=== PATIENT | female | born 1960 | race Caucasian/White ===

== ENCOUNTER 2018-03-13 21:06 | Emergency (ER) | payer MEDICARE, OTHER ==
[~2018-03-13] VITALS: Ht 167.6 cm; Wt 63.5 kg
[~2018-03-13 21:06] MED LIST: ACET325 PO; ALBIPROI INH; ALBU90I INH; ALBU90OI INH; ALBU90OI61 INH; AMOCLA875 PO; AMOX500 PO; AMOX875 PO; CELE200 PO; CEPH500 PO; CHLO25 PO; CLAR250 PO; CLIN150 PO; CODGUAEL PO; CRUTCH4 USE; CYCL10 PO; DOXY100 PO; FLUT110OIA IH; GUAPHELA PO; HYDACE5 PO; LIDO5TP TOP; LISI20 PO; LORA10 PO; META800 PO; METPRE4DP PO; OLAN5 PO; OXYM.05NI; PENVK500 PO; PRED10 PO; PRED20 PO; PROACE100 PO; PSEU30 PO; RISP.25 PO; RXCYCL10 PO; RXHYDACE PO; RXPROACE PO; SERT50 PO; SODCHL.65S; SULTRIDS PO; TRAZ100 PO; TRIE10TC TOP; VARE1; VARE1 PO
[2018-03-13 21:31] LABS: BASOPHILS ABSOLUTE AUTO 0.04 K/mm3 (0.00-0.23); BASOPHILS PERCENT AUTO 1 % (0-2); EOSINOPHILS ABSOLUTE AUTO 0.19 K/mm3 (0.00-0.68); EOSINOPHILS PERCENT AUTO 2 % (0-6); Hematocrit 41.5 % (33.0-51.0); Hemoglobin 13.8 g/dL (11.5-16.0); IMMATURE GRAN ABSOLUTE AUTO 0.02 K/mm3 (0.00-0.10); IMMATURE GRAN PERCENT AUTO 0 % (0-1); LYMPHOCYTES ABSOLUTE AUTO 3.07 K/mm3 (0.84-5.20); LYMPHOCYTES PERCENT AUTO 38 % (21-46); MONOCYTES ABSOLUTE AUTO 0.67 K/mm3 (0.16-1.47); MONOCYTES PERCENT AUTO 8 % (4-13); Mean Corpuscular HGB 29.6 pg (26.0-34.0); Mean Corpuscular HGB Conc 33.3 g/dL (31.5-36.5); Mean Corpuscular Volume 89 fL (80-100); Mean Platelet Volume 9.3 fL (9.1-12.4); NEUTROPHILS ABSOLUTE AUTO 4.05 K/mm3 (1.96-9.15); NEUTROPHILS PERCENT AUTO 50 % (41-73); Platelet Count 197 K/mm3 (150-400); RDW Coefficient Variation 12.6 % (11.7-14.2); RDW Standard Deviation 41.1 fL (35.1-46.3); Red Blood Cell Count 4.67 M/mm3 (3.80-5.20); White Blood Cell Count 8.04 K/mm3 (4.00-11.30)
[2018-03-13 21:48] LABS: Troponin I <0.015 ng/mL (0.000-0.040)
[2018-03-13 21:49] LABS: Alanine Aminotransfer (ALT/SGP 16 U/L (12-78); Albumin, Blood 3.5 g/dL (3.4-5.0); Alk Phos 126 U/L (50-136); Anion Gap 7 mmol/L (6-16); Aspartate Aminotrans (AST/SGOT 15 U/L (12-37); Bilirubin, Total 0.3 mg/dL (0.1-1.0); Blood Urea Nitrogen 6 mg/dL (8-24); Bun/Creatinine Ratio 9.5 (12.0-20.0); CO2, Blood 29 mmol/L (21-32); Calcium, Blood 8.3 mg/dL (8.5-10.1); Chloride, Blood 104 mmol/L (98-108); Creatinine, Blood 0.63 mg/dL (0.40-1.00); Globulin, Blood 3.4 g/dL (2.2-4.0); Glomerular Filtration Rate >60 (60-); Glucose, Blood 101 mg/dL (70-99); Potassium, Blood 3.6 mmol/L (3.5-5.5); Sodium, Blood 140 mmol/L (136-145); Total Protein, Blood 6.9 g/dL (6.4-8.2)
[2018-03-13] MEDS ORDERED: Ventolin/Prove6.7 GM INH (21:49)
[2018-03-13] MEDS ORDERED: ALBU3IS INH (21:49)
[2018-03-13] MEDS ORDERED: CETI5 PO (21:50)
== END 2018-03-13 23:05 | disposition home or self-care (01) ==
LOC: ER 21:06
PROVIDERS: Emergency Medicine
DX: R55 Syncope and collapse (principal); J44.9 Chronic obstructive pulmonary disease, unspecified; F32.9 Major depressive disorder, single episode, unspecified; I10 Essential (primary) hypertension; Z85.3 Personal history of malignant neoplasm of breast; Z88.5 Allergy status to narcotic agent; Z88.8 Allergy status to other drugs, medicaments and biological substances; Z79.899 Other long term (current) drug therapy; F17.200 Nicotine dependence, unspecified, uncomplicated
CPT/HCPCS: 80053; 84484; 85025; 93005; 93010; 99284

== ENCOUNTER → 2019-07-15 | Outpatient (CLI) | payer OTHER ==
[~2019-07-15] MED LIST changes: +ALBU3IS INH; +CETI5 PO; +Ventolin/Prove6.7 GM INH
[2019-07-16 15:02] LABS: Stool Occult Bld Immuno 1 Positive (NEGATIVE)
== END ==
LOC: LAB SHORT 14:27 → LAB 14:27
PROVIDERS: Nurse Practitioner Family
DX: Z12.11 Encounter for screening for malignant neoplasm of colon (principal)
CPT/HCPCS: G0328

== ENCOUNTER 2019-09-03 12:06 | Day surgery (SDC) | payer OTHER ==
[~2019-09-03] VITALS: Ht 167.6 cm; Wt 69.1 kg
[2019-09-03] MEDS ORDERED: ALLEGRA ALLERG180 MG (13:26)
--- NOTE | 2019-09-03 13:31 | NUR ---
09/03/19 1331 TRANG TANNER PT DOES NOT KNOW HEALTH HISTORY, CALLED [facility] AND RECIEVED ALL INFORMATION FROM THEM.
--- NOTE | 2019-09-03 16:31 | NUR ---
09/03/19 1631 Chantal Phillips AT APPX 1610 PATIENT BEGAN WRETCHING, ZOFRAN GIVEN PER PROTOCOL AND PHYSICIAN OK. PATIENT SUCTION OF CLEAR WATER LIKE FLUID O2 SATS DID NOT DROP THROUGHOUT THIS INCIDENT. PATIENT REMAINED STABLE
== END 2019-09-03 17:37 | disposition home or self-care (01) ==
LOC: ORSCSDS 12:06
PROVIDERS: Student in an Organized Health Care Education/Training Program
PROC: 0DBM8ZX Excision of Descending Colon, Via Natural or Artificial Opening Endoscopic, Diagnostic (ICD-10-PCS; principal; 2019-09-03 14:00)
PROC: 0DBN8ZX Excision of Sigmoid Colon, Via Natural or Artificial Opening Endoscopic, Diagnostic (ICD-10-PCS; principal; 2019-09-03 14:00)
PROC: 0DBK8ZX Excision of Ascending Colon, Via Natural or Artificial Opening Endoscopic, Diagnostic (ICD-10-PCS; principal; 2019-09-03 14:00)
PROC: 0DBH8ZX Excision of Cecum, Via Natural or Artificial Opening Endoscopic, Diagnostic (ICD-10-PCS; principal; 2019-09-03 14:00)
PROC: 0DBC8ZX Excision of Ileocecal Valve, Via Natural or Artificial Opening Endoscopic, Diagnostic (ICD-10-PCS; principal; 2019-09-03 14:00)
DX: R19.5 Other fecal abnormalities (principal); D12.5 Benign neoplasm of sigmoid colon; D12.0 Benign neoplasm of cecum; D12.2 Benign neoplasm of ascending colon; D12.4 Benign neoplasm of descending colon; K64.8 Other hemorrhoids; K57.30 Diverticulosis of large intestine without perforation or abscess without bleeding; I10 Essential (primary) hypertension; J44.9 Chronic obstructive pulmonary disease, unspecified; B19.20 Unspecified viral hepatitis C without hepatic coma; F17.210 Nicotine dependence, cigarettes, uncomplicated; F03.90 Unspecified dementia, unspecified severity, without behavioral disturbance, psychotic disturbance, mood disturbance, and anxiety; Z79.899 Other long term (current) drug therapy
CPT/HCPCS: 88305; J2405; J2704; J7040; J7120

== ENCOUNTER → 2020-08-10 | Outpatient (CLI) | payer OTHER ==
[~2020-08-10] MED LIST changes: +ALLEGRA ALLERG180 MG
[2020-08-10 18:46] LABS: CHOL/HDL RATIO 2.6; Cholesterol 119 mg/dL (50-200); HDL Cholesterol 45 mg/dL (>39); LDL/HDL RATIO 1.3; Low Density Lipoprotein Chol 59 mg/dL (0-110); Triglycerides 76 mg/dL (30-160); Very Low Density Lipoprot Chol 15 mg/dL (6-32)
== END | disposition home or self-care (01) ==
LOC: LAB SHORT 15:01 → LAB 15:01
PROVIDERS: Nurse Practitioner Family
DX: E78.2 Mixed hyperlipidemia (principal)
CPT/HCPCS: 80061

== ENCOUNTER 2020-11-24 10:45 | Day surgery (SDC) | payer OTHER ==
[~2020-11-24] VITALS: Ht 167.6 cm; Wt 62.8 kg
[2020-11-24] MEDS ORDERED: SYMBICORT 160-4.6 GM (11:42)
[2020-11-24] MEDS ORDERED: ATOR20 (11:43)
[2020-11-24] MEDS ORDERED: TIOT18 (11:43)
== END 2020-11-24 12:52 | disposition home or self-care (01) ==
LOC: ORSCSDS 10:45
PROVIDERS: Student in an Organized Health Care Education/Training Program
PROC: 0DBH8ZX Excision of Cecum, Via Natural or Artificial Opening Endoscopic, Diagnostic (ICD-10-PCS; principal; 2020-11-24 12:00)
PROC: 0DBK8ZX Excision of Ascending Colon, Via Natural or Artificial Opening Endoscopic, Diagnostic (ICD-10-PCS; principal; 2020-11-24 12:00)
PROC: 0DBL8ZX Excision of Transverse Colon, Via Natural or Artificial Opening Endoscopic, Diagnostic (ICD-10-PCS; principal; 2020-11-24 12:00)
DX: Z12.11 Encounter for screening for malignant neoplasm of colon (principal); D12.0 Benign neoplasm of cecum; D12.2 Benign neoplasm of ascending colon; D12.3 Benign neoplasm of transverse colon; K57.30 Diverticulosis of large intestine without perforation or abscess without bleeding; K64.8 Other hemorrhoids; Z86.010 Personal history of colon polyps; J44.9 Chronic obstructive pulmonary disease, unspecified; I10 Essential (primary) hypertension; Z79.899 Other long term (current) drug therapy; F17.210 Nicotine dependence, cigarettes, uncomplicated
CPT/HCPCS: 88305; J2704; J7120

== ENCOUNTER 2024-08-25 13:14 | Emergency (ER) | payer OTHER ==
[~2024-08-25] VITALS: Ht 167.6 cm; Wt 59.0 kg
[~2024-08-25 13:14] MED LIST changes: +ATOR20; +SYMBICORT 160-4.6 GM; +TIOT18
[2024-08-25 14:04] VITALS: BP 85/64
[2024-08-25 15:51] LABS: Source, Urine Clean Catch
[2024-08-25 15:57] LABS: Appearance, Urine Cloudy (Clear); Bilirubin, Urine Neg (Neg); Blood, Urine 1+ (Neg); Color, Urine Yellow (P-Yellow); Glucose Qualitative, Urine Neg (Neg); Ketones, Urine 1+ (Neg); Leukocyte Esterase, Urine 1+ (Neg); Nitrite, Urine Neg (Neg); Protein, Urine 2+ (Neg); Specific Gravity, Urine 1.025 (1.003-1.022); Urobilinogen, Urine 2+ (Normal)
[2024-08-25 16:07] LABS: Bacteria Many /hpf; Mucus Light (0-Heavy); Red Blood Cells, Urine 0-2 /hpf (0-2); Squamous Epithelial Cells Many /hpf (Few)
[2024-08-25] MEDS ORDERED: Macrobid 100 M100 MG PO (16:21)
[2024-08-25] MEDS ORDERED: ULTRA-LIGHT RO1 EACH UD ×2 (16:21→16:57)
== END 2024-08-25 17:22 | disposition home or self-care (01) ==
LOC: ER 13:14
PROVIDERS: Physician Assistant
DX: S83.91XA Sprain of unspecified site of right knee, initial encounter (principal); N39.0 Urinary tract infection, site not specified; K21.9 Gastro-esophageal reflux disease without esophagitis; J44.9 Chronic obstructive pulmonary disease, unspecified; I10 Essential (primary) hypertension; F17.210 Nicotine dependence, cigarettes, uncomplicated; W01.0XXA Fall on same level from slipping, tripping and stumbling without subsequent striking against object, initial encounter; Z79.51 Long term (current) use of inhaled steroids; Z79.899 Other long term (current) drug therapy; Z88.5 Allergy status to narcotic agent; Z88.6 Allergy status to analgesic agent
CPT/HCPCS: 73562-RT; 81001; 87086; 99284-25

== ENCOUNTER 2024-11-10 22:22 | Inpatient (IN) | payer OTHER ==
[~2024-11-10] VITALS: Ht 165.1 cm; Wt 61.2 kg
[~2024-11-10 22:22] MED LIST changes: -ALLEGRA ALLERG180 MG; +ALLEGRA ALLERG180 MG PO; -ATOR20; +ATOR20 PO; +Macrobid 100 M100 MG PO; -SYMBICORT 160-4.6 GM; +SYMBICORT 160-4.6 GM INH; -TRAZ100 PO; +TRAZ150T57 PO; +ULTRA-LIGHT RO1 EACH UD
[2024-11-10 22:44] LABS: BASOPHILS ABSOLUTE AUTO 0.02 K/mm3 (0.00-0.23); BASOPHILS PERCENT AUTO 0 % (0-2); EOSINOPHILS ABSOLUTE AUTO 0.01 K/mm3 (0.00-0.68); EOSINOPHILS PERCENT AUTO 0 % (0-6); IMMATURE GRAN ABSOLUTE AUTO 0.02 K/mm3 (0.00-0.10); IMMATURE GRAN PERCENT AUTO 0 % (0-1); LYMPHOCYTES ABSOLUTE AUTO 0.77 K/mm3 (0.84-5.20); LYMPHOCYTES PERCENT AUTO 9 % (21-46); MONOCYTES PERCENT AUTO 13 % (4-13); Mean Corpuscular HGB 30.5 pg (26.0-34.0); Mean Corpuscular HGB Conc 33.3 g/dL (31.5-36.5); Mean Corpuscular Volume 92 fL (80-100); NEUTROPHILS ABSOLUTE AUTO 6.98 K/mm3 (1.96-9.15); NEUTROPHILS PERCENT AUTO 78 % (41-73); Platelet Count 164 K/mm3 (150-400); RDW Coefficient Variation 12.8 % (11.7-14.2); RDW Standard Deviation 43.2 fL (35.1-46.3); Red Blood Cell Count 4.26 M/mm3 (3.80-5.20)
[2024-11-10 23:03] LABS: Albumin, Blood 3.6 g/dL (3.4-5.0); Albumin/Globulin Ratio 1.2 (0.8-1.8); Bilirubin, Total 0.5 mg/dL (0.1-1.0); Bun/Creatinine Ratio 20.9 (12.0-20.0); Calcium, Blood 8.4 mg/dL (8.5-10.1); Creatinine, Blood 0.57 mg/dL (0.40-1.00); Globulin, Blood 3.1 g/dL (2.2-4.0); Total Protein, Blood 6.7 g/dL (6.4-8.2)
[2024-11-10] MEDS ORDERED: CefTRIAXone Sodium 1,000 MG in NS 100 ML IV ONE (23:45)
[2024-11-10] MEDS ORDERED: Azithromycin 500 MG in NS 250 ML IV ONE (23:45)
[2024-11-10] MEDS ORDERED: Ipratropium/Albuterol SulF 2.5-0.5MG/3 ML Amp INH ONE (23:45)
[2024-11-11 00:35] LABS: Source, Urine Clean Catch
[2024-11-11 00:40] LABS: Appearance, Urine Clear (Clear); Bilirubin, Urine Neg (Neg); Blood, Urine 3+ (Neg); Color, Urine Yellow (P-Yellow); Glucose Qualitative, Urine Neg (Neg); Ketones, Urine Neg (Neg); Leukocyte Esterase, Urine Neg (Neg); Nitrite, Urine Neg (Neg); Protein, Urine 3+ (Neg); Specific Gravity, Urine 1.025 (1.003-1.022); Urobilinogen, Urine NORM (Normal)
[2024-11-11 01:01] LABS: CORONAVIRUS COVID-19 AG Negative (NEGATIVE); INFLUENZA B AG Negative (NEGATIVE)
[2024-11-11 01:06] LABS: Bacteria Mod /hpf; Granular Casts 0-2 /lpf (0); Hyaline Casts 0-2 /lpf (0-2); Red Blood Cells, Urine 0-2 /hpf (0-2); Squamous Epithelial Cells Mod /hpf (Few)
[2024-11-11] MEDS ORDERED: Albuterol 2.5 MG/3 ML VIAL INH SCH (01:10)
[2024-11-11] MEDS ORDERED: NS 1,000 ML IV SCH (02:40)
[2024-11-11] MEDS ORDERED: Ipratropium/Albuterol SulF 2.5-0.5MG/3 ML Amp INH SCH (03:10)
[2024-11-11 04:40] VITALS: BP 105/57
[2024-11-11 05:59] LABS: BASOPHILS ABSOLUTE AUTO 0.04 K/mm3 (0.00-0.23); BASOPHILS PERCENT AUTO 0 % (0-2); EOSINOPHILS ABSOLUTE AUTO 0.01 K/mm3 (0.00-0.68); EOSINOPHILS PERCENT AUTO 0 % (0-6); Hematocrit 36.4 % (33.0-51.0); Hemoglobin 12.6 g/dL (11.5-16.0); IMMATURE GRAN ABSOLUTE AUTO 0.08 K/mm3 (0.00-0.10); IMMATURE GRAN PERCENT AUTO 1 % (0-1); LYMPHOCYTES PERCENT AUTO 10 % (21-46); MONOCYTES ABSOLUTE AUTO 1.36 K/mm3 (0.16-1.47); MONOCYTES PERCENT AUTO 15 % (4-13); Mean Corpuscular HGB 31.3 pg (26.0-34.0); Mean Corpuscular HGB Conc 34.6 g/dL (31.5-36.5); Mean Corpuscular Volume 90 fL (80-100); Mean Platelet Volume 9.1 fL (9.1-12.4); NEUTROPHILS ABSOLUTE AUTO 6.55 K/mm3 (1.96-9.15); NEUTROPHILS PERCENT AUTO 73 % (41-73); Platelet Count 141 K/mm3 (150-400); RDW Coefficient Variation 12.9 % (11.7-14.2); RDW Standard Deviation 42.3 fL (35.1-46.3); Red Blood Cell Count 4.03 M/mm3 (3.80-5.20); White Blood Cell Count 8.94 K/mm3 (4.00-11.30)
[2024-11-11 06:42] LABS: Albumin, Blood 3.1 g/dL (3.4-5.0); Albumin/Globulin Ratio 1.1 (0.8-1.8); Bilirubin, Total 0.3 mg/dL (0.1-1.0); Bun/Creatinine Ratio 22.4 (12.0-20.0); Calcium, Blood 8.1 mg/dL (8.5-10.1); Creatinine, Blood 0.49 mg/dL (0.40-1.00); Globulin, Blood 2.7 g/dL (2.2-4.0); Potassium, Blood 3.7 mmol/L (3.5-5.5); Total Protein, Blood 5.8 g/dL (6.4-8.2)
--- NOTE | 2024-11-11 06:43 | NUR ---
P;T ARRIVED ON MEDICAL UNIT @ APPROX 0230 THIS SHIFT. SHE HAS SLEPT FOR THE ENTIRE TIME SHE HAS BEEN HERE. ASSESSMENT COMPLETED AND ORDERS VERIFIED.
[2024-11-11 07:30] VITALS: BP 135/61
--- NOTE | 2024-11-11 07:30 | NUR ---
ASSUMED CARE OF PATIENT. AWAKE DURING SHIFT CHANGE. ORIENTED TO SELF, ONLY.
[2024-11-11] MEDS ORDERED: MethylPREDNISolone Sod Succ 125 MG Vial IV SCH (09:00)
[2024-11-11] MEDS ORDERED: Enoxaparin 40 MG/0.4 ML SYR SC SCH (09:00)
[2024-11-11] MEDS ORDERED: PredniSONE 20 MG Tab PO SCH (09:00)
[2024-11-11] MEDS ORDERED: Oseltamivir Phosphate 75 MG Cap PO SCH (09:00)
--- NOTE | 2024-11-11 09:53 | NUR ---
UTILITIES EQUIPMENT REPAIRER SWAB COLLECTED FOR INFLUENZA SUBTYPING PER VIRGIL MONTEZ.
--- NOTE | 2024-11-11 11:18 | NUR ---
STEVE, TRIMMER LOADER [employer]ER[employer] MAKER, CALLING FROM [facility], REQUESTING UPDATE ON DELILAH. UPDATE GIVEN. SHE WILL BE FAXING A COPY OF HER MAR TO US. PATIENT USES 2LPM/HS AT BASELINE.
--- NOTE | 2024-11-11 14:26 | NUR ---
Pt. is sitting up in a chair looking downward. When I enter the room she slowly looked up and displayed evidence that I was welcome (she nodded). The Pt. did not verbalize anything during the visit, but did answer simple yes/no questions with nods. Pt. displayed evidence of being alone and did not acknowledge the involvement of family, but she did affirm that she was a woman of reese and welcomed prayer. Prayed with Pt. Will remain available to the Pt.
[2024-11-11 16:03] VITALS: BP 116/62
--- NOTE | 2024-11-11 17:31 | NUR ---
END OF SHIFT SUMMARY: A&O TO SELF ONLY. CHAIR ALARM/BED ALARM ACTIVATED DUE TO NOT UTILIZING CALL LIGHT; IMPULSIVE AND FORGETS LIMITATIONS. CONTINENT OF BOWEL AND BLADDER. AMBULATES c FWW TO BATHROOM. MEDS WHOLE c FLUIDS. SALINE LOCKED IN RIGHT AC. UPDATED PROVIDED TO EXTENDER OF RICEJamilah SAMS, WHERE PATIENT RESIDES, AND SON, JOSE A. MAINTAINING SPO2 >92% ON 3LPM/NC; 2LPM/NC @ HS AT BASELINE. BED IN LOWEST POSITION, CALL LIGHT WITHIN REACH, ALL NEEDS MET. REPORT TO ONCOMING NURSE.
--- NOTE | 2024-11-11 18:46 | NUR ---
GRANDDAUGHTER, SARAH LEWIS, CAN BE REACHED IN CASE OF AN EMERGENCY: [phone]
[2024-11-11 19:47] VITALS: BP 135/79
[2024-11-11] MEDS ORDERED: Nicotine 21 MG PATCH TOP SCH (20:40)
[2024-11-11] MEDS ORDERED: NS 250 ML IV PRN (20:45)
[2024-11-11] MEDS ORDERED: Azithromycin 250 MG Tab PO SCH (21:00)
[2024-11-11] MEDS ORDERED: Atorvastatin 10 MG Tab PO SCH (21:00)
[2024-11-11] MEDS ORDERED: RisperiDONE 0.25 MG Tab PO SCH (21:00)
[2024-11-11] MEDS ORDERED: TraZODone HCl 50 MG Tab PO SCH (21:00)
[2024-11-11] MEDS ORDERED: CefTRIAXone Sodium 1,000 MG in NS 100 ML IV SCH (21:00)
[2024-11-12] MEDS ORDERED: FLUTICASONE P10.6 GM INH (02:42)
[2024-11-12] MEDS ORDERED: IPRAT-ALBUT 0.5-3 ML INH (02:43)
[2024-11-12] MEDS ORDERED: LORA10ER PO (02:43)
[2024-11-12] MEDS ORDERED: THERA-D2000 UNIT PO (02:44)
[2024-11-12] MEDS ORDERED: SPIRIVA RESPIMAT4 G3 INH (02:45)
[2024-11-12] MEDS ORDERED: Acetaminophen325 M1 PO (02:46)
[2024-11-12] MEDS ORDERED: ALBU90OI INH (02:47)
[2024-11-12] MEDS ORDERED: BISA10S PR (02:47)
[2024-11-12] MEDS ORDERED: LOPE2C PO (02:48)
[2024-11-12] MEDS ORDERED: DULCOLAX400 MG/5 M PO (02:48)
[2024-11-12] MEDS ORDERED: Fleet Enema132 ML PR (02:48)
[2024-11-12] MEDS ORDERED: NYSTATIN15 GM TOP (02:49)
--- NOTE | 2024-11-12 06:47 | NUR ---
SHIFT SUMMARY NOC PT A/O TO SELF. PLEASANT AND COOPERATIVE WITH CARE.VSS. PT HOME RX RECONCILED AND RESTARTED AT BEDTIME. PT GRANDDAUGHTER IN ROOM DURING BEGINNING OF SHIFT AND GOT MED LIST FROM [facility]. PT RECEIVING IVABX PER EMAR. ON DROPLET ISOLATION FOR INFLUENZA A. PT REMAINS ON 3L/HFNC SO PT CAN GET INTO BATHROOM. PT CURRENTLY RESTING WITH BED ALARM ON, BED IN LOWEST POSITION, AND CALL LIGHT WITHIN REACH.
[2024-11-12 07:30] VITALS: BP 135/113
--- NOTE | 2024-11-12 16:23 | NUR ---
NO CHANGES IN THE PT STATUS FOR THE DAY. NO C/O PAIN OR SOB.
[2024-11-12 17:39] VITALS: BP 132/70
[2024-11-12 20:05] VITALS: BP 87/67
[2024-11-13 04:50] VITALS: BP 128/78
--- NOTE | 2024-11-13 06:11 | NUR ---
SHIFT SUMMARY NOC PT A/O TO SELF AND GRANDAUGHTER. PLEASANTLY CONFUSED AND COOPERATIVE WITH CARE. PT STILL ON 3L/NC SPO2 >92%. PT STILL HAVNG URINARY FREQUENCY/ URGENCY. STILL RECEIVING IV ABX FOR PNA/UTI. PT ON DROPLET ISOLATION FOR INFLUENZA A. PT POSSIBLE DISCHARGE BACK TO [facility] TODAY. PT CURRENTLY RESTING WITH BED IN LOWEST POSITION, AND CALL LIGHT WITHIN REACH.
[2024-11-13 07:36] VITALS: BP 120/106
[2024-11-13] MEDS ORDERED: Albuterol 2.5 MG/3 ML VIAL INH SCH (07:55)
[2024-11-13] MEDS ORDERED: Albuterol HFA200 ACT/6.7 GM INH INH PRN (08:00)
--- NOTE | 2024-11-13 13:49 | NUR ---
PT WILL BE DISHCARGING BACK TO [facility], THIS NURSE CALLED REPORT AND TALKED WITH HARLEY. THIS PT HS NO QUESTIONS OR CONCERNS. HOME O2 EVAL COMPLETED. NEW BL IS 2L NC AND 4 UPON AMBULATION
[2024-11-13] MEDS ORDERED: AZIT250 PO (18:31)
[2024-11-13] MEDS ORDERED: OSEL75CA PO (18:32)
[2024-11-13] MEDS ORDERED: NICO21TP TOP (18:32)
[2024-11-13] MEDS ORDERED: VISBIOME 112.51 EACH PO (18:33)
[2024-11-13] MEDS ORDERED: PRED20 PO (18:34)
[2024-11-20 09:08] LABS: INFLUENZA A AG Positive (NEGATIVE)
== END 2024-11-13 14:02 | disposition home or self-care (01) | DRG 193 ==
LOC: ER 22:22 → MEDS 11-11 01:22 → ENPENDDIS 11-13 13:22 → MEDS 11-13 14:02
PROVIDERS: Student in an Organized Health Care Education/Training Program; ADMIT Internal Medicine
DX: J10.01 Influenza due to other identified influenza virus with the same other identified influenza virus pneumonia (principal); G93.41 Metabolic encephalopathy; J96.21 Acute and chronic respiratory failure with hypoxia; G93.49 Other encephalopathy; E87.1 Hypo-osmolality and hyponatremia; J44.1 Chronic obstructive pulmonary disease with (acute) exacerbation; F03.93 Unspecified dementia, unspecified severity, with mood disturbance; I10 Essential (primary) hypertension; Z85.3 Personal history of malignant neoplasm of breast; K21.9 Gastro-esophageal reflux disease without esophagitis; F17.210 Nicotine dependence, cigarettes, uncomplicated; Z88.5 Allergy status to narcotic agent; Z88.8 Allergy status to other drugs, medicaments and biological substances; Z79.899 Other long term (current) drug therapy; Z90.11 Acquired absence of right breast and nipple; Z92.21 Personal history of antineoplastic chemotherapy; Z92.3 Personal history of irradiation; Z98.1 Arthrodesis status; Z98.890 Other specified postprocedural states
CPT/HCPCS: 36415; 71045; 80053; 81001; 83735; 85025; 87086; 87428-QW; 93005; 93010; 94640; 94644; 94664; 94760; 94761; 94762; 96365; 96375; 99285-25; A9270; J0456; J0696; J1650; J2919; J7030; J7050

== ENCOUNTER 2024-11-19 12:53 | Emergency (ER) | payer OTHER ==
[~2024-11-19] VITALS: Ht 167.6 cm; Wt 54.4 kg
[~2024-11-19 12:53] MED LIST changes: +AZIT250 PO; +Acetaminophen325 M1 PO; +BISA10S PR; +DULCOLAX400 MG/5 M PO; +FLUTICASONE P10.6 GM INH; +Fleet Enema132 ML PR; +IPRAT-ALBUT 0.5-3 ML INH; +LOPE2C PO; +LORA10ER PO; +NICO21TP TOP; +NYSTATIN15 GM TOP; +OSEL75CA PO; +SPIRIVA RESPIMAT4 G3 INH; +THERA-D2000 UNIT PO; +VISBIOME 112.51 EACH PO
[2024-11-19] MEDS ORDERED: MethylPREDNISolone Sod Succ 125 MG Vial IV ONE (13:00)
[2024-11-19] MEDS ORDERED: Ipratropium/Albuterol SulF 2.5-0.5MG/3 ML Amp INH ONE (13:00)
[2024-11-19 13:21] LABS: Base Excess Venous 9.9 mmol/L; Bicarbonate Venous 30.4 mmol/L (24.0-30.0); PCO2 Venous 60.6 mmHg (38-42); pH Blood Venous 7.37 (7.34-7.37)
[2024-11-19 13:32] LABS: Source, Urine Clean Catch
[2024-11-19 13:33] LABS: BASOPHILS ABSOLUTE AUTO 0.01 K/mm3 (0.00-0.23); BASOPHILS PERCENT AUTO 0 % (0-2); EOSINOPHILS PERCENT AUTO 0 % (0-6); Hematocrit 42.2 % (33.0-51.0); Hemoglobin 14.1 g/dL (11.5-16.0); IMMATURE GRAN ABSOLUTE AUTO 0.06 K/mm3 (0.00-0.10); IMMATURE GRAN PERCENT AUTO 1 % (0-1); LYMPHOCYTES ABSOLUTE AUTO 0.95 K/mm3 (0.84-5.20); LYMPHOCYTES PERCENT AUTO 13 % (21-46); MONOCYTES ABSOLUTE AUTO 0.31 K/mm3 (0.16-1.47); MONOCYTES PERCENT AUTO 4 % (4-13); Mean Corpuscular HGB 31.1 pg (26.0-34.0); Mean Corpuscular HGB Conc 33.4 g/dL (31.5-36.5); Mean Corpuscular Volume 93 fL (80-100); Mean Platelet Volume 8.9 fL (9.1-12.4); NEUTROPHILS ABSOLUTE AUTO 5.81 K/mm3 (1.96-9.15); NEUTROPHILS PERCENT AUTO 82 % (41-73); Platelet Count 294 K/mm3 (150-400); RDW Standard Deviation 44.2 fL (35.1-46.3); Red Blood Cell Count 4.54 M/mm3 (3.80-5.20); White Blood Cell Count 7.14 K/mm3 (4.00-11.30)
[2024-11-19 13:38] LABS: Appearance, Urine Clear (Clear); Bilirubin, Urine Neg (Neg); Blood, Urine Neg (Neg); Color, Urine Yellow (P-Yellow); Glucose Qualitative, Urine Neg (Neg); Ketones, Urine Neg (Neg); Leukocyte Esterase, Urine Neg (Neg); Nitrite, Urine Neg (Neg); Protein, Urine Neg (Neg); Urobilinogen, Urine NORM (Normal)
[2024-11-19 13:50] LABS: Bun/Creatinine Ratio 13.3 (12.0-20.0); Creatinine, Blood 0.6 mg/dL (0.40-1.00); Potassium, Blood 3.9 mmol/L (3.5-5.5)
[2024-11-19 14:41] LABS: Influenza B, PCR NEGATIVE (NEGATIVE); Resp Syncytial Virus, PCR NEGATIVE (NEGATIVE); SARS-Cov-2 (COVID-19) PCR, MMC NEGATIVE (NEGATIVE)
[2024-11-19 14:42] LABS: Influenza A, PCR POSITIVE (NEGATIVE)
[2024-11-19] MEDS ORDERED: ACET500 PO (16:23)
[2024-11-19 16:30] VITALS: BP 131/108
== END 2024-11-20 13:16 | disposition home or self-care (01) ==
LOC: ER 12:53
PROVIDERS: Emergency Medicine
DX: J10.1 Influenza due to other identified influenza virus with other respiratory manifestations (principal); R09.02 Hypoxemia; I10 Essential (primary) hypertension; J44.9 Chronic obstructive pulmonary disease, unspecified; K21.9 Gastro-esophageal reflux disease without esophagitis; F17.210 Nicotine dependence, cigarettes, uncomplicated; Z87.01 Personal history of pneumonia (recurrent); Z88.5 Allergy status to narcotic agent; Z88.6 Allergy status to analgesic agent; Z79.52 Long term (current) use of systemic steroids; Z79.51 Long term (current) use of inhaled steroids; Z79.899 Other long term (current) drug therapy
CPT/HCPCS: 0241U; 71045; 80048; 81003; 82803; 83880; 84484; 85025; 85379; 93005; 93010; 94640; 94664; 96374; 99285-25; J2919

== ENCOUNTER 2024-11-21 09:35 | Emergency (ER) | payer OTHER ==
[~2024-11-21] VITALS: Ht 167.6 cm; Wt 61.2 kg
[~2024-11-21 09:35] MED LIST changes: +ACET500 PO
[2024-11-21 09:40] VITALS: BP 100/52
== END 2024-11-21 11:18 | disposition home or self-care (01) ==
LOC: ER 09:35
DX: J44.1 Chronic obstructive pulmonary disease with (acute) exacerbation (principal); R09.02 Hypoxemia; I10 Essential (primary) hypertension; K21.9 Gastro-esophageal reflux disease without esophagitis; F17.210 Nicotine dependence, cigarettes, uncomplicated; Z91.199 Patient's noncompliance with other medical treatment and regimen due to unspecified reason; Z88.5 Allergy status to narcotic agent; Z88.6 Allergy status to analgesic agent; Z79.51 Long term (current) use of inhaled steroids; Z79.899 Other long term (current) drug therapy
CPT/HCPCS: 93005; 93010; 99284-25

== ENCOUNTER 2025-01-25 22:53 | Emergency (ER) | payer OTHER ==
[~2025-01-25] VITALS: Ht 170.2 cm; Wt 72.6 kg
[2025-01-25] MEDS ORDERED: Albuterol 2.5 MG/3 ML VIAL INH SCH (22:55)
[2025-01-25 23:07] LABS: BASOPHILS ABSOLUTE AUTO 0.04 K/mm3 (0.00-0.23); BASOPHILS PERCENT AUTO 0 % (0-2); EOSINOPHILS ABSOLUTE AUTO 0.02 K/mm3 (0.00-0.68); EOSINOPHILS PERCENT AUTO 0 % (0-6); Hematocrit 39.3 % (33.0-51.0); Hemoglobin 13.1 g/dL (11.5-16.0); IMMATURE GRAN PERCENT AUTO 1 % (0-1); LYMPHOCYTES ABSOLUTE AUTO 1.37 K/mm3 (0.84-5.20); LYMPHOCYTES PERCENT AUTO 9 % (21-46); MONOCYTES ABSOLUTE AUTO 2.06 K/mm3 (0.16-1.47); MONOCYTES PERCENT AUTO 13 % (4-13); Mean Corpuscular HGB 31.6 pg (26.0-34.0); Mean Corpuscular HGB Conc 33.3 g/dL (31.5-36.5); Mean Corpuscular Volume 95 fL (80-100); Mean Platelet Volume 9.3 fL (9.1-12.4); NEUTROPHILS ABSOLUTE AUTO 12.34 K/mm3 (1.96-9.15); NEUTROPHILS PERCENT AUTO 78 % (41-73); Platelet Count 228 K/mm3 (150-400); RDW Coefficient Variation 13.1 % (11.7-14.2); RDW Standard Deviation 45.8 fL (35.1-46.3); Red Blood Cell Count 4.14 M/mm3 (3.80-5.20); White Blood Cell Count 15.93 K/mm3 (4.00-11.30)
[2025-01-25 23:29] LABS: Albumin, Blood 3.1 g/dL (3.4-5.0); Albumin/Globulin Ratio 0.8 (0.8-1.8); Bilirubin, Total 0.4 mg/dL (0.1-1.0); Bun/Creatinine Ratio 14.1 (12.0-20.0); Calcium, Blood 9.1 mg/dL (8.5-10.1); Creatinine, Blood 0.57 mg/dL (0.40-1.00); Globulin, Blood 3.7 g/dL (2.2-4.0); Magnesium, Blood 1.9 mg/dL (1.6-2.4); Potassium, Blood 4.1 mmol/L (3.5-5.5); Total Protein, Blood 6.8 g/dL (6.4-8.2)
[2025-01-25 23:30] VITALS: BP 113/73
[2025-01-25 23:30] LABS: Base Excess Venous 9.7 mmol/L; Bicarbonate Venous 31.3 mmol/L (24.0-30.0); pH Blood Venous 7.39 (7.34-7.37)
[2025-01-25] MEDS ORDERED: Azithromycin 250 MG Tab PO ONE (23:45)
[2025-01-26] MEDS ORDERED: PRED20 PO (00:02)
[2025-01-26] MEDS ORDERED: AZIT250 PO (00:02)
[2025-01-26 00:12] LABS: Influenza A, PCR NEGATIVE (NEGATIVE); Influenza B, PCR NEGATIVE (NEGATIVE); Resp Syncytial Virus, PCR NEGATIVE (NEGATIVE); SARS-Cov-2 (COVID-19) PCR, MMC NEGATIVE (NEGATIVE)
== END 2025-01-26 00:22 | disposition home or self-care (01) ==
LOC: ER 22:53
PROVIDERS: Student in an Organized Health Care Education/Training Program
DX: J44.1 Chronic obstructive pulmonary disease with (acute) exacerbation (principal); J96.21 Acute and chronic respiratory failure with hypoxia; R06.03 Acute respiratory distress; I10 Essential (primary) hypertension; F17.210 Nicotine dependence, cigarettes, uncomplicated; Z88.5 Allergy status to narcotic agent; Z88.6 Allergy status to analgesic agent; Z79.899 Other long term (current) drug therapy; Z79.52 Long term (current) use of systemic steroids; Z11.52 Encounter for screening for COVID-19
CPT/HCPCS: 0241U; 71045; 80053; 82803; 83735; 85025; 93005; 93010; 94644; 94664; 99285-25; A9270

== ENCOUNTER 2025-02-05 08:36 | Inpatient (IN) | payer MEDICARE, OTHER ==
[~2025-02-05] VITALS: Ht 167.6 cm; Wt 54.7 kg
[2025-02-05] MEDS ORDERED: Ipratropium Bromide INH 0.02% 0.5 mg/2.5ML Vial INH SCH (09:15)
[2025-02-05] MEDS ORDERED: Albuterol 2.5 MG/3 ML VIAL INH SCH ×2 (09:15→13:20)
[2025-02-05 09:35] LABS: BASOPHILS ABSOLUTE AUTO 0.06 K/mm3 (0.00-0.23); BASOPHILS PERCENT AUTO 0 % (0-2); EOSINOPHILS PERCENT AUTO 0 % (0-6); Hematocrit 45.1 % (33.0-51.0); Hemoglobin 14.5 g/dL (11.5-16.0); IMMATURE GRAN PERCENT AUTO 1 % (0-1); LYMPHOCYTES ABSOLUTE AUTO 1.28 K/mm3 (0.84-5.20); LYMPHOCYTES PERCENT AUTO 6 % (21-46); MONOCYTES ABSOLUTE AUTO 1.79 K/mm3 (0.16-1.47); MONOCYTES PERCENT AUTO 8 % (4-13); Mean Corpuscular HGB 30.8 pg (26.0-34.0); Mean Corpuscular HGB Conc 32.2 g/dL (31.5-36.5); Mean Corpuscular Volume 96 fL (80-100); Mean Platelet Volume 8.6 fL (9.1-12.4); NEUTROPHILS ABSOLUTE AUTO 18.97 K/mm3 (1.96-9.15); NEUTROPHILS PERCENT AUTO 85 % (41-73); Platelet Count 361 K/mm3 (150-400); RDW Coefficient Variation 13.2 % (11.7-14.2); RDW Standard Deviation 47.3 fL (35.1-46.3); Red Blood Cell Count 4.71 M/mm3 (3.80-5.20)
[2025-02-05 09:52] LABS: Albumin, Blood 2.9 g/dL (3.4-5.0); Albumin/Globulin Ratio 0.7 (0.8-1.8); Bilirubin, Total 0.4 mg/dL (0.1-1.0); Bun/Creatinine Ratio 17.9 (12.0-20.0); Calcium, Blood 8.8 mg/dL (8.5-10.1); Creatinine, Blood 0.84 mg/dL (0.40-1.00); Globulin, Blood 3.9 g/dL (2.2-4.0); Potassium, Blood 4.7 mmol/L (3.5-5.5); Total Protein, Blood 6.8 g/dL (6.4-8.2)
[2025-02-05 10:20] LABS: Influenza A, PCR NEGATIVE (NEGATIVE); Influenza B, PCR NEGATIVE (NEGATIVE); SARS-Cov-2 (COVID-19) PCR, MMC NEGATIVE (NEGATIVE)
[2025-02-05 10:25] LABS: Source, Urine Clean Catch
[2025-02-05 10:32] LABS: Appearance, Urine Cloudy (Clear); Blood, Urine 1+ (Neg); Color, Urine Amber (P-Yellow); Glucose Qualitative, Urine Neg (Neg); Ketones, Urine 1+ (Neg); Leukocyte Esterase, Urine 1+ (Neg); Nitrite, Urine Neg (Neg); Protein, Urine 2+ (Neg); Specific Gravity, Urine 1.025 (1.003-1.022); Urobilinogen, Urine 2+ (Normal)
[2025-02-05 10:44] LABS: Bilirubin, Urine 1+ (Neg)
[2025-02-05 10:46] LABS: Amorphous Light (0-Heavy); Bacteria Many /hpf; Calcium Oxalate Crystals Many /hpf; Mucus Mod (0-Heavy); Red Blood Cells, Urine 0-2 /hpf (0-2)
[2025-02-05 10:47] LABS: Squamous Epithelial Cells Few /hpf (Few)
[2025-02-05 11:02] LABS: Resp Syncytial Virus, PCR POSITIVE (NEGATIVE)
[2025-02-05] MEDS ORDERED: NS 1,000 ML IV SCH (12:05)
[2025-02-05] MEDS ORDERED: CefTRIAXone Sodium 1,000 MG in NS 100 ML IV ONE (12:40)
[2025-02-05] MEDS ORDERED: MethylPREDNISolone Sod Succ 125 MG Vial IV ONE (14:05)
[2025-02-05] MEDS ORDERED: Ipratropium/Albuterol SulF 2.5-0.5MG/3 ML Amp INH SCH (15:20)
[2025-02-05] MEDS ORDERED: Acetaminophen 325 MG TABLET PO PRN (15:25)
[2025-02-05 15:52] LABS: Base Excess Venous 8.2 mmol/L; Bicarbonate Venous 29.6 mmol/L (24.0-30.0); PCO2 Venous 62.2 mmHg (38-42); pH Blood Venous 7.35 (7.34-7.37)
[2025-02-05 18:29] VITALS: BP 121/75
--- NOTE | 2025-02-05 18:41 | NUR ---
arrival to pcu patient arrived to pcu at 1820 from er and transfered from [facility] to pcu bed with a one assist. patient able to state name and birthday and in hospital and is oriented to family. patient denies pain, chest pain/pressure or shortness of breath. spo2 >90% on 4l nc. patient tele sinus rhythm 80-90s. patient lung sounds clear upper lobes bilaterally and dim wheeze lower lobes bilaterally. patient has active bowel tones. patient has an attends in place. skin is clean dry and intact. patient granddaughter sanket at bedside. patient son, shruti, is POA and paper work is in chart from damion [facility]. quick admit is done.
[2025-02-05 19:33] VITALS: BP 152/139
[2025-02-05] MEDS ORDERED: Atorvastatin 10 MG Tab PO SCH (21:00)
[2025-02-05] MEDS ORDERED: TraZODone HCl 100 MG Tab PO SCH (21:00)
[2025-02-05] MEDS ORDERED: Lactobacil 2-S.Thermo-Bifido 1 1 Cap PO SCH (21:00)
[2025-02-05] MEDS ORDERED: RisperiDONE 0.25 MG Tab PO SCH (21:00)
[2025-02-05] MEDS ORDERED: MethylPREDNISolone Sod Succ 125 MG Vial IV SCH (23:00)
[2025-02-05 23:33] VITALS: BP 109/70
[2025-02-06 03:04] VITALS: BP 123/67
[2025-02-06 04:16] LABS: BASOPHILS ABSOLUTE AUTO 0.02 K/mm3 (0.00-0.23); BASOPHILS PERCENT AUTO 0 % (0-2); EOSINOPHILS PERCENT AUTO 0 % (0-6); Hematocrit 39.8 % (33.0-51.0); Hemoglobin 13.1 g/dL (11.5-16.0); IMMATURE GRAN ABSOLUTE AUTO 0.11 K/mm3 (0.00-0.10); IMMATURE GRAN PERCENT AUTO 1 % (0-1); LYMPHOCYTES ABSOLUTE AUTO 0.55 K/mm3 (0.84-5.20); LYMPHOCYTES PERCENT AUTO 3 % (21-46); MONOCYTES ABSOLUTE AUTO 0.32 K/mm3 (0.16-1.47); MONOCYTES PERCENT AUTO 2 % (4-13); Mean Corpuscular HGB 31.7 pg (26.0-34.0); Mean Corpuscular HGB Conc 32.9 g/dL (31.5-36.5); Mean Corpuscular Volume 96 fL (80-100); Mean Platelet Volume 8.5 fL (9.1-12.4); NEUTROPHILS ABSOLUTE AUTO 16.44 K/mm3 (1.96-9.15); NEUTROPHILS PERCENT AUTO 94 % (41-73); Platelet Count 302 K/mm3 (150-400); RDW Coefficient Variation 13.1 % (11.7-14.2); RDW Standard Deviation 46.5 fL (35.1-46.3); Red Blood Cell Count 4.13 M/mm3 (3.80-5.20); White Blood Cell Count 17.44 K/mm3 (4.00-11.30)
[2025-02-06 04:38] LABS: Bun/Creatinine Ratio 21.4 (12.0-20.0); Calcium, Blood 8.4 mg/dL (8.5-10.1); Creatinine, Blood 0.56 mg/dL (0.40-1.00); Potassium, Blood 4.7 mmol/L (3.5-5.5)
--- NOTE | 2025-02-06 05:29 | NUR ---
SHIFT SUMMARY PT ORIENTED TO PERSON AND PLACE, SHE HAS HISTORY OF DEMENTIA AND IS FORGETFUL AND CAN BE IMPULSIVE. BED ALARM ON FOR SAFETY. VSS, AFEBRILE, LS WITH CRACKLES T/O, PT DENIES SOB OR CP. PT HAD SEVERAL INSTANCES OF DESATTING TO 70% O2 DUE TO POSITIONING IN BED AND PULLING OFF O2. PT ABLE TO RECOVER WITH INCREASE IN O2 AND POSITIONING TO HER BACK. PT IS RESTING IN BED, CALL LIGHT IN REACH, BREATHING IS EVEN AND UNLABORED AT THIS TIME.
[2025-02-06 07:16] VITALS: BP 118/66
--- NOTE | 2025-02-06 07:31 | NUR ---
Assisted OOB to BSC; she voided and followed directions but was not very conversant. Straight back to bed and sleeping. Bed alarm on. Oxygen 5 l/min with spo2 93-97%.
--- NOTE | 2025-02-06 08:28 | NUR ---
[place] bedside swallow evaluation was completed after pt was assisted up to sit in chair. She passed. She is sitting up eating breakfast after taking her pills whole with water and showing no difficulty with any of those activities.
[2025-02-06] MEDS ORDERED: Nicotine 21 MG PATCH TOP SCH (09:00)
[2025-02-06] MEDS ORDERED: Enoxaparin 40 MG/0.4 ML SYR SC SCH (09:00)
[2025-02-06] MEDS ORDERED: CefTRIAXone Sodium 1,000 MG in NS 100 ML IV SCH (09:00)
--- NOTE | 2025-02-06 11:10 | NUR ---
Pt sitting up in chair, getting neb breathing tx. Frequent hacking cough but no expectoration. Very limited memory, although she is cooperative and compliant with treatment and care. Oriented to person and place only. Due to difficult venous access, 3 RNs attempted to restart her IV, and pt pulled it 15 minutes after RN left the room. She is moved in her recliner for better visibility from the nurses station to prevent inadvertant pt interference with care.
[2025-02-06 11:48] VITALS: BP 122/68
[2025-02-06 15:34] VITALS: BP 103/72
--- NOTE | 2025-02-06 17:23 | NUR ---
Pt set chair alarm off when she stood up. Said that she needed to use the toilet. Ambulatory to bathroom, standby assist, to void. Walked back to chair with minimal assist with O2 tubing. Continuous Spo2 monitoring, WNL. chair alarm on, she is coloring in her book.
--- NOTE | 2025-02-06 18:31 | NUR ---
Assisted up to bathroom after standing up and setting off chair alarm. Cooperative. Back to chair to continue with breakfast.
[2025-02-06 19:09] VITALS: BP 117/63
[2025-02-06] MEDS ORDERED: MethylPREDNISolone Sod Succ 125 MG Vial IV SCH (21:00)
[2025-02-07 03:17] VITALS: BP 121/65
[2025-02-07 04:02] LABS: BASOPHILS ABSOLUTE AUTO 0.01 K/mm3 (0.00-0.23); BASOPHILS PERCENT AUTO 0 % (0-2); EOSINOPHILS ABSOLUTE AUTO 0.01 K/mm3 (0.00-0.68); EOSINOPHILS PERCENT AUTO 0 % (0-6); Hematocrit 39.1 % (33.0-51.0); Hemoglobin 12.8 g/dL (11.5-16.0); IMMATURE GRAN ABSOLUTE AUTO 0.08 K/mm3 (0.00-0.10); IMMATURE GRAN PERCENT AUTO 1 % (0-1); LYMPHOCYTES ABSOLUTE AUTO 0.44 K/mm3 (0.84-5.20); LYMPHOCYTES PERCENT AUTO 3 % (21-46); MONOCYTES ABSOLUTE AUTO 0.95 K/mm3 (0.16-1.47); MONOCYTES PERCENT AUTO 6 % (4-13); Mean Corpuscular HGB 31.3 pg (26.0-34.0); Mean Corpuscular HGB Conc 32.7 g/dL (31.5-36.5); Mean Corpuscular Volume 96 fL (80-100); Mean Platelet Volume 8.7 fL (9.1-12.4); NEUTROPHILS ABSOLUTE AUTO 14.97 K/mm3 (1.96-9.15); NEUTROPHILS PERCENT AUTO 91 % (41-73); Platelet Count 305 K/mm3 (150-400); RDW Coefficient Variation 12.9 % (11.7-14.2); RDW Standard Deviation 44.8 fL (35.1-46.3); Red Blood Cell Count 4.09 M/mm3 (3.80-5.20); White Blood Cell Count 16.46 K/mm3 (4.00-11.30)
[2025-02-07 04:22] LABS: Calcium, Blood 8.5 mg/dL (8.5-10.1); Creatinine, Blood 0.5 mg/dL (0.40-1.00); Potassium, Blood 4.4 mmol/L (3.5-5.5)
--- NOTE | 2025-02-07 05:03 | NUR ---
SHIFT SUMMARY NO ACUTE EVENTS THIS SHIFT. PT ORIENTED TO PERSON AND PLACE, SHE HAS HISTORY OF DEMENTIA AND IS FORGETFUL AND CAN BE IMPULSIVE. BED ALARM ON FOR SAFETY. PT UP TO BATHROOM MANY TIMES THIS SHIFT TO URINATE. VSS, AFEBRILE, LS WITH CRACKLES T/O, PT DENIES SOB OR CP. SPO2 >90% ON 3-4L O2 VIA NC. PT IS RESTING IN BED, CALL LIGHT IN REACH, BED IN LOWEST POSITION, BED ALARM ON, BREATHING IS EVEN AND UNLABORED.
--- NOTE | 2025-02-07 07:27 | NUR ---
THIS RN ASSUMED CARE OF PT AT 0700. PT IS ALERT AND ORIENTED X2-3, CONFUSED ABOUT DATE/TIME BUT VERY REDIRECTABLE. PT HEART RATE IN THE 80s, BLOOD PRESSURE STABLE AT 120/62, PT DENIES CHEST PAIN UPON ASSESSMENT. PT IS ON 3L NC, SATTING >95%, SOUNDS COURSE/WHEEZY/DIMINISHED, PT DENIES SHORTNESS OF BREATHE UPON ASSESSMENT. PT IS ABLE TO VOID PER TOILET WITH STAND BY-ASSISTANCE. PT MAY BE GOING BACK TO [facility] TODAY, WAITING FOR DOCTOR TO COME TO BEDSIDE. NO OTHER INTERVENTIONS AT THIS TIME. PLAN OF CARE CONTINUED.
[2025-02-07 08:00] VITALS: BP 1120/62
[2025-02-07 16:00] VITALS: BP 130/78
--- NOTE | 2025-02-07 18:09 | NUR ---
PT SUMMARY NO NEW ACUTE EVENTS TO REPORT THROUGHOUT THE DAY, PT DOES GET UP FREQUENTLY, BED ALARM HAS BEEN PUT ON AND NON-SLIP SOCKS ARE ON, PT IS ALERT AND VERY STABLE ON FEET. PLAN IS FOR PT TO GO BACK TO HOME FACILITY TOMORROW. NO OTHER INTERVENTIONS AT THIS TIME. PLAN OF CARE CONTINUED.
[2025-02-07 20:44] VITALS: BP 148/96
[2025-02-07] MEDS ORDERED: PredniSONE 20 MG Tab PO SCH (21:00)
[2025-02-08 06:05] VITALS: BP 125/101
--- NOTE | 2025-02-08 06:45 | NUR ---
VITAL SIGNS STABLE FOR PT THROUGHOUT SHIFT. PT DID NOT APPEAR TO BE IN DISTRES WHEN SHE WOULD REMOVE HER O2 BUT HER SATS DID DECREASE RAPIDLY ON ROOM AIR. PT APPEARS TO SUNDOWN AND IS MORE CONFUSED AT NIGHT. PT DOES WANDER AND FREQUENTLY SETS OF BED ALARM BUT IS REDIRECTABLE AND STEADY ON FEET. DIFFICULT TO ASSERTAIN PT I&O PT WOULD REMOVE HAT TO USE TOILET DESPITE FREQUENT REORIENTATION. PT DID MAKE SEVERAL TRIPS TO BATHROOM BUT UNABLE TO SAY IF SHE WENT OR NOT D/T CONFUSION. PT IS AOX2-3, STEADY ON FEET. PT DOES NOT USE THE CALL LIGHT BUT IS ABLE TO MAKE NEEDS KNOWN. PT ORIENTATION VERY LABILE. PT DID PULLOUT IV THIS SHIFT DESPITE REORIENTATION TO THE NECESSITY OF IT WELL THE IV SITE BEING REDRESSED AND SECURED. NEW IV STARTED. PT DOES FREQUENTLY REMOVE O2 MONITORING AND O2 CANNULA, REPLACED AND ATTEMPTS AT REORIENTING PT MADE.
[2025-02-08 07:58] VITALS: BP 105/64
[2025-02-08 10:37] LABS: BASOPHILS ABSOLUTE AUTO 0.01 K/mm3 (0.00-0.23); BASOPHILS PERCENT AUTO 0 % (0-2); EOSINOPHILS PERCENT AUTO 0 % (0-6); Hematocrit 38.4 % (33.0-51.0); Hemoglobin 12.6 g/dL (11.5-16.0); IMMATURE GRAN ABSOLUTE AUTO 0.06 K/mm3 (0.00-0.10); IMMATURE GRAN PERCENT AUTO 1 % (0-1); LYMPHOCYTES ABSOLUTE AUTO 0.41 K/mm3 (0.84-5.20); LYMPHOCYTES PERCENT AUTO 4 % (21-46); MONOCYTES PERCENT AUTO 12 % (4-13); Mean Corpuscular HGB 31.1 pg (26.0-34.0); Mean Corpuscular HGB Conc 32.8 g/dL (31.5-36.5); Mean Corpuscular Volume 95 fL (80-100); Mean Platelet Volume 8.7 fL (9.1-12.4); NEUTROPHILS ABSOLUTE AUTO 7.64 K/mm3 (1.96-9.15); NEUTROPHILS PERCENT AUTO 83 % (41-73); Platelet Count 290 K/mm3 (150-400); RDW Standard Deviation 44.9 fL (35.1-46.3); Red Blood Cell Count 4.05 M/mm3 (3.80-5.20); White Blood Cell Count 9.22 K/mm3 (4.00-11.30)
[2025-02-08 11:12] LABS: Albumin, Blood 2.5 g/dL (3.4-5.0); Albumin/Globulin Ratio 0.8 (0.8-1.8); Bilirubin, Total 0.2 mg/dL (0.1-1.0); Bun/Creatinine Ratio 24.9 (12.0-20.0); Calcium, Blood 8.7 mg/dL (8.5-10.1); Creatinine, Blood 0.44 mg/dL (0.40-1.00); Potassium, Blood 3.9 mmol/L (3.5-5.5); Total Protein, Blood 5.5 g/dL (6.4-8.2)
[2025-02-08 11:13] VITALS: BP 114/57
[2025-02-08] MEDS ORDERED: PRED20 PO (11:19)
[2025-02-08] MEDS ORDERED: CEFU500T30 PO (11:19)
--- NOTE | 2025-02-08 11:35 | NUR ---
discharge update Call placed to [facility] on chart to notify of pt's discharge back to [facility]. No answers on both attempts.
--- NOTE | 2025-02-08 11:49 | NUR ---
SHIFT SUMMARY/DISCHARGE. DOCTOR IN AT [facility]IDE THIS MORNING AND SPOKE WITH PATIENT. PATIENT IS MEDICALLY STABLE AND READY FOR DISCHARGE. PATIENT WILL BE DISCHARGED TODAY BACK TO [facility] WITH ABX AND STEROIDS. [facility] AT U10 FOR TRANSPORT TO [facility]. THIS RN SPOKE WITH ARIELA RN AT [facility] AND GAVE REPORT-LAST B/P, O2 SATS, PULSE, BOWEL MOVEMENT PROVIDED, QUESTIONS ANSWERED. PATIENT SIGNED DISCHARGE PAPER WORK AND EXPLAINED DISCHARGE BACK TO [facility]. PATIENT DRESSED AND IV ACCESS HAS BEEN REMOVED. PATIENT TAKEN BY [facility] VIA WHEELCHAIR AND PORTABLE OXYGEN AT 2LPM.
== END 2025-02-08 11:46 | disposition home or self-care (01) | DRG 189 ==
LOC: ER 08:36 → ERHOLD 15:15 → PCU 15:15
PROVIDERS: Physician Assistant; Student in an Organized Health Care Education/Training Program; ADMIT Hospitalist
DX: J96.21 Acute and chronic respiratory failure with hypoxia (principal); J44.1 Chronic obstructive pulmonary disease with (acute) exacerbation; N39.0 Urinary tract infection, site not specified; E51.2 Wernicke's encephalopathy; F03.93 Unspecified dementia, unspecified severity, with mood disturbance; F17.210 Nicotine dependence, cigarettes, uncomplicated; F10.10 Alcohol abuse, uncomplicated; F15.10 Other stimulant abuse, uncomplicated; B97.4 Respiratory syncytial virus as the cause of diseases classified elsewhere; K21.9 Gastro-esophageal reflux disease without esophagitis; E78.5 Hyperlipidemia, unspecified; I50.9 Heart failure, unspecified; I11.0 Hypertensive heart disease with heart failure; D72.829 Elevated white blood cell count, unspecified; Z88.8 Allergy status to other drugs, medicaments and biological substances; Z88.5 Allergy status to narcotic agent; Z79.899 Other long term (current) drug therapy; Z79.51 Long term (current) use of inhaled steroids; Z79.2 Long term (current) use of antibiotics; Z79.52 Long term (current) use of systemic steroids; Z99.89 Dependence on other enabling machines and devices; Z92.21 Personal history of antineoplastic chemotherapy; Z85.3 Personal history of malignant neoplasm of breast; Z90.11 Acquired absence of right breast and nipple; Z98.891 History of uterine scar from previous surgery; Z98.890 Other specified postprocedural states; Z98.1 Arthrodesis status; Z91.148 Patient's other noncompliance with medication regimen for other reason
CPT/HCPCS: 0241U; 36415; 71046; 80048; 80053; 81001; 82803; 83605; 85025; 87086; 93005; 93010; 94640; 94644; 94664; 94762; 96365; 96375; 99285-25; A9270; J0696; J1650; J2919; J7030; J7512

== ENCOUNTER 2025-02-16 19:40 | Emergency (ER) | payer MEDICARE, OTHER ==
[~2025-02-16] VITALS: Ht 167.6 cm; Wt 59.0 kg
[~2025-02-16 19:40] MED LIST changes: +CEFU500T30 PO
[2025-02-16 19:59] VITALS: BP 98/68
[2025-02-16 20:10] LABS: Source, Urine Voided
[2025-02-16 20:15] LABS: Bilirubin, Urine Neg (Neg); Blood, Urine Neg (Neg); Color, Urine Yellow (P-Yellow); Glucose Qualitative, Urine Neg (Neg); Ketones, Urine Neg (Neg); Leukocyte Esterase, Urine Neg (Neg); Nitrite, Urine Neg (Neg); Protein, Urine 1+ (Neg); Specific Gravity, Urine 1.025 (1.003-1.022); Urobilinogen, Urine 1+ (Normal)
[2025-02-16 20:23] LABS: BASOPHILS ABSOLUTE AUTO 0.02 K/mm3 (0.00-0.23); BASOPHILS PERCENT AUTO 0 % (0-2); EOSINOPHILS ABSOLUTE AUTO 0.13 K/mm3 (0.00-0.68); EOSINOPHILS PERCENT AUTO 1 % (0-6); Hematocrit 40.9 % (33.0-51.0); Hemoglobin 13.2 g/dL (11.5-16.0); IMMATURE GRAN ABSOLUTE AUTO 0.06 K/mm3 (0.00-0.10); IMMATURE GRAN PERCENT AUTO 1 % (0-1); LYMPHOCYTES ABSOLUTE AUTO 2.19 K/mm3 (0.84-5.20); LYMPHOCYTES PERCENT AUTO 21 % (21-46); MONOCYTES ABSOLUTE AUTO 1.09 K/mm3 (0.16-1.47); MONOCYTES PERCENT AUTO 10 % (4-13); Mean Corpuscular HGB 31.4 pg (26.0-34.0); Mean Corpuscular HGB Conc 32.3 g/dL (31.5-36.5); Mean Corpuscular Volume 97 fL (80-100); NEUTROPHILS ABSOLUTE AUTO 7.11 K/mm3 (1.96-9.15); NEUTROPHILS PERCENT AUTO 67 % (41-73); Platelet Count 225 K/mm3 (150-400); RDW Standard Deviation 49.4 fL (35.1-46.3)
[2025-02-16 20:35] LABS: Appearance, Urine Hazy (Clear); Bacteria Few /hpf; Calcium Oxalate Crystals Many /hpf; Red Blood Cells, Urine 0-2 /hpf (0-2); Squamous Epithelial Cells Few /hpf (Few); White Blood Cells, Urine 0-2 /hpf (0-5)
[2025-02-16 20:58] LABS: Albumin/Globulin Ratio 0.9 (0.8-1.8); Bilirubin, Total 0.2 mg/dL (0.1-1.0); Calcium, Blood 8.5 mg/dL (8.5-10.1); Creatinine, Blood 0.63 mg/dL (0.40-1.00); Globulin, Blood 3.2 g/dL (2.2-4.0); Potassium, Blood 3.8 mmol/L (3.5-5.5); Total Protein, Blood 6.2 g/dL (6.4-8.2)
== END 2025-02-16 21:46 | disposition home or self-care (01) ==
LOC: ER 19:40
PROVIDERS: Emergency Medicine
DX: Z03.89 Encounter for observation for other suspected diseases and conditions ruled out (principal); F03.90 Unspecified dementia, unspecified severity, without behavioral disturbance, psychotic disturbance, mood disturbance, and anxiety; J44.9 Chronic obstructive pulmonary disease, unspecified; I10 Essential (primary) hypertension; E78.5 Hyperlipidemia, unspecified; K21.9 Gastro-esophageal reflux disease without esophagitis; F17.210 Nicotine dependence, cigarettes, uncomplicated; Z88.5 Allergy status to narcotic agent; Z88.6 Allergy status to analgesic agent; Z79.52 Long term (current) use of systemic steroids; Z79.899 Other long term (current) drug therapy
CPT/HCPCS: 80053; 81001; 85025; 87086; 93005; 93010; 99285-25

== ENCOUNTER 2025-04-14 12:50 | Emergency (ER) | payer OTHER ==
[~2025-04-14] VITALS: Ht 167.6 cm; Wt 61.2 kg
[2025-04-14] MEDS ORDERED: NS 1,000 ML IV SCH (13:00)
[2025-04-14 14:09] LABS: BASOPHILS ABSOLUTE AUTO 0.07 K/mm3 (0.00-0.23); BASOPHILS PERCENT AUTO 1 % (0-2); EOSINOPHILS ABSOLUTE AUTO 0.16 K/mm3 (0.00-0.68); EOSINOPHILS PERCENT AUTO 2 % (0-6); Hematocrit 37.3 % (33.0-51.0); Hemoglobin 12.3 g/dL (11.5-16.0); IMMATURE GRAN ABSOLUTE AUTO 0.02 K/mm3 (0.00-0.10); IMMATURE GRAN PERCENT AUTO 0 % (0-1); LYMPHOCYTES ABSOLUTE AUTO 1.60 K/mm3 (0.84-5.20); LYMPHOCYTES PERCENT AUTO 24 % (21-46); MONOCYTES ABSOLUTE AUTO 0.82 K/mm3 (0.16-1.47); MONOCYTES PERCENT AUTO 12 % (4-13); Mean Corpuscular HGB Conc 33.0 g/dL (31.5-36.5); Mean Corpuscular Volume 93 fL (80-100); NEUTROPHILS ABSOLUTE AUTO 3.93 K/mm3 (1.96-9.15); NEUTROPHILS PERCENT AUTO 60 % (41-73); NRBC ABSOLUTE 0.00 K/mm3 (0.00-0.02); NRBC Auto 0.0 /100 WBC (0.0-0.2); Platelet Count 217 K/mm3 (150-400); RDW Coefficient Variation 13.4 % (11.7-14.2); RDW Standard Deviation 45.6 fL (35.1-46.3)
[2025-04-14 14:20] LABS: Alanine Aminotransfer (ALT/SGP 15.0 U/L (12-78); Albumin, Blood 3.1 g/dL (3.4-5.0); Albumin/Globulin Ratio 1.0 (0.8-1.8); Anion Gap 5.0 mmol/L (3-11); Aspartate Aminotrans (AST/SGOT 9.0 U/L (12-37); Bilirubin, Total 0.3 mg/dL (0.1-1.0); Blood Urea Nitrogen 11.0 mg/dL (8-24); CO2, Blood 32.0 mmol/L (21-32); Calcium, Blood 8.4 mg/dL (8.5-10.1); Chloride, Blood 107.0 mmol/L (98-108); Creatinine, Blood 0.64 mg/dL (0.40-1.00); Globulin, Blood 3.0 g/dL (2.2-4.0); Glucose, Blood 71.0 mg/dL (70-99); Potassium, Blood 3.7 mmol/L (3.5-5.5); Sodium, Blood 140.0 mmol/L (136-145); Total Protein, Blood 6.1 g/dL (6.4-8.2)
[2025-04-14 15:00] VITALS: BP 142/78
== END 2025-04-14 16:17 | disposition home or self-care (01) ==
LOC: ER 12:50
PROVIDERS: Physician Assistant
DX: M25.552 Pain in left hip (principal); W19.XXXA Unspecified fall, initial encounter; J44.9 Chronic obstructive pulmonary disease, unspecified; I10 Essential (primary) hypertension; E78.5 Hyperlipidemia, unspecified; K21.9 Gastro-esophageal reflux disease without esophagitis; F17.210 Nicotine dependence, cigarettes, uncomplicated; Z79.899 Other long term (current) drug therapy
CPT/HCPCS: 73502; 80053; 85025; 93005; 93010; 99284-25; J7030

== ENCOUNTER 2025-06-13 20:47 | Emergency (ER) | payer MEDICARE, OTHER ==
[~2025-06-13] VITALS: Ht 157.5 cm; Wt 61.2 kg
[2025-06-13 23:45] LABS: BASOPHILS ABSOLUTE AUTO 0.02 K/mm3 (0.00-0.23); BASOPHILS PERCENT AUTO 0 % (0-2); EOSINOPHILS ABSOLUTE AUTO 0.07 K/mm3 (0.00-0.68); EOSINOPHILS PERCENT AUTO 1 % (0-6); Hematocrit 40.4 % (33.0-51.0); Hemoglobin 13.5 g/dL (11.5-16.0); IMMATURE GRAN ABSOLUTE AUTO 0.03 K/mm3 (0.00-0.10); IMMATURE GRAN PERCENT AUTO 0 % (0-1); LYMPHOCYTES ABSOLUTE AUTO 1.71 K/mm3 (0.84-5.20); LYMPHOCYTES PERCENT AUTO 19 % (21-46); MONOCYTES ABSOLUTE AUTO 0.76 K/mm3 (0.16-1.47); MONOCYTES PERCENT AUTO 9 % (4-13); Mean Corpuscular HGB Conc 33.4 g/dL (31.5-36.5); Mean Corpuscular Volume 92 fL (80-100); NEUTROPHILS ABSOLUTE AUTO 6.29 K/mm3 (1.96-9.15); NEUTROPHILS PERCENT AUTO 71 % (41-73); NRBC ABSOLUTE 0.00 K/mm3 (0.00-0.02); NRBC Auto 0.0 /100 WBC (0.0-0.2); Platelet Count 243 K/mm3 (150-400); RDW Coefficient Variation 12.7 % (11.7-14.2); RDW Standard Deviation 43.0 fL (35.1-46.3)
[2025-06-13 23:46] LABS: Anion Gap 6.0 mmol/L (3-11); Blood Urea Nitrogen 8.0 mg/dL (8-24); CO2, Blood 31.0 mmol/L (21-32); Calcium, Blood 8.6 mg/dL (8.5-10.1); Chloride, Blood 104.0 mmol/L (98-108); Creatinine, Blood 0.59 mg/dL (0.40-1.00); Glucose, Blood 98.0 mg/dL (70-99); Potassium, Blood 4.1 mmol/L (3.5-5.5); Sodium, Blood 137.0 mmol/L (136-145)
[2025-06-14 00:10] VITALS: BP 91/61
== END 2025-06-14 01:00 | disposition home or self-care (01) ==
LOC: ER 20:47
PROVIDERS: Student in an Organized Health Care Education/Training Program
DX: R55 Syncope and collapse (principal); S00.83XA Contusion of other part of head, initial encounter; S00.11XA Contusion of right eyelid and periocular area, initial encounter; E04.9 Nontoxic goiter, unspecified; D32.0 Benign neoplasm of cerebral meninges; J44.9 Chronic obstructive pulmonary disease, unspecified; J96.10 Chronic respiratory failure, unspecified whether with hypoxia or hypercapnia; I10 Essential (primary) hypertension; E78.5 Hyperlipidemia, unspecified; K21.9 Gastro-esophageal reflux disease without esophagitis; F03.90 Unspecified dementia, unspecified severity, without behavioral disturbance, psychotic disturbance, mood disturbance, and anxiety; F17.210 Nicotine dependence, cigarettes, uncomplicated; Z88.5 Allergy status to narcotic agent; Z99.81 Dependence on supplemental oxygen; Z88.6 Allergy status to analgesic agent; Z79.51 Long term (current) use of inhaled steroids; Z79.52 Long term (current) use of systemic steroids; Z79.899 Other long term (current) drug therapy; W19.XXXA Unspecified fall, initial encounter
CPT/HCPCS: 36415; 70450; 71046; 72125; 80048; 85025; 93005; 93010; 99285-25; A9270